=== PATIENT | female | born 1995 | race Caucasian/White ===

== ENCOUNTER 2018-10-13 23:45 | Inpatient (IN) | payer OTHER ==
[2018-10-14] MEDS ORDERED: BUTORPHANOL 1 MG/ML INJ IV ONE (03:08)
[2018-10-14] MEDS ORDERED: PROMETHAZINE 25 MG/ML VIAL IV PRN (03:10)
[2018-10-14] MEDS ORDERED: Ringers Lactate 1,000 ML IV PRN (03:10)
[2018-10-14] MEDS ORDERED: METHYLERGONOVINE 0.2MG/ML AMP IM PRN ×2 (03:10→14:30)
[2018-10-14] MEDS ORDERED: BUTORPHANOL 1 MG/ML INJ IV PRN (03:10)
[2018-10-14] MEDS ORDERED: OXYTOCIN/LR 20 UNIT/1,000 ML BAG IV ONE (03:34)
[2018-10-14] MEDS ORDERED: Ringers Lactate 1,000 ML IV ONE (03:34)
[2018-10-14] MEDS ORDERED: OXYTOCIN/LR 20 UNIT/1,000 ML BAG IV SCH ×2 (04:00→15:00)
[2018-10-14] MEDS ORDERED: Ringers Lactate 1,000 ML IV SCH (04:00)
[2018-10-14 04:08] LABS: RPR Titer ND
[2018-10-14 04:12] LABS: Urine Appearance CLEAR; Urine Bilirubin NEGATIVE (NEG); Urine Blood NEGATIVE (NEG); Urine Color YELLOW; Urine Glucose NEGATIVE (NEG); Urine Protein NEGATIVE (NEG); Urine Specific Gravity 1.015 (1.005-1.030); Urine Urobilinogen 0.2 mg/dL (0.2-1.0); Urine pH 6.5 (5.0-7.0)
[2018-10-14 04:13] LABS: Absolute Lymphocytes (CBC) 2.7 K/uL (0.7-4.9); Absolute Monocytes 0.8 K/uL (0.1-1.3); Absolute Neutrophil 8.1 K/uL (1.8-8.0); Basophils % 0.5 % (0-1.3); Eosinophils % 0.7 % (0-4.4); Hematocrit 32.8 % (36.0-45.0); Lymphocytes % 22.7 % (15.3-44.8); MPV 10.3 fL (7.6-11.3); Monocytes % 7.2 % (3.3-12.3); RBC Red Blood Cell Count 3.59 M/uL (3.86-4.86)
[2018-10-14] MEDS ORDERED: PROMETHAZINE 25 MG/ML VIAL IV ONE (04:13)
[2018-10-14 04:25] LABS: Urine Microscopic Reflex NO UMIC
[2018-10-14 04:57] VITALS: BMI 35.4
--- NOTE | 2018-10-14 06:53 | P.PN ---
Date of Service: 10/14/18 Cx 2+ cm, soft, 80% effaced, vtx ballotable at minus 2 station. FSE applied, clear fluid noted, pt. on pitocin.
[2018-10-14] MEDS ORDERED: FENTANYL/BUPIVACAINE/NS/PF 200 MCG/100 ML BAG EP PRN (06:56)
[2018-10-14] MEDS ORDERED: FENTANYL CITR 100 MCG/2 ML IV SCH ×2 (06:56→07:34)
[2018-10-14] MEDS ORDERED: BUPIVACAINE 0.25% PF 30 ML VIAL SQ PRN (06:59)
[2018-10-14] MEDS ORDERED: ROPIVACAINE HCL 100 ML IV PRN (07:29)
[2018-10-14] MEDS ORDERED: ROPIVACAINE HCL 0.2% 20ML AMP IV SCH (07:33)
--- NOTE | 2018-10-14 11:52 | PREOPHP ---
Date of Admission: 10/14/2018 History Of Present Illness: Ms. Dutta is a 23-year-old female, 1, para 0, at 39+ weeks gestation, admitted in prodromal labor. She had been having contractions, was observed for se veral hours, cervix unchanged, but contractions continued. Because of this, at this point with favor able cervix. She is admitted for augmentation of labor and delivery. Past Medical History: Please see record. Family History: Please see record. Review of Systems: She reports no recent cough, cold, fever, or chills. No recent nausea or vomiting. She denies any b reast lumps. has been active. She denies rupture of membrane. She denies urine symptoms or bowel issues. Physical Examination: General: Reveals female, in mild discomfort. Neck: Supple without adenopathy or thyromegaly. Lungs: Clear. Cardiac: Regular rate and rhythm without murmurs. Breasts: Not examined. Abdomen: Estimated weight approximately 8 pounds. Pelvic: Cervix now 2+ cm dilated, 80% effaced, and cervix soft with vertex ballotable. scalp electrode placed. Clear fluid noted. Extremities: Trace lower extremity edema. Impression: A 39+ week , prodromal labor. Plan: The patient augmented with Pitocin and now rupture of membranes. We will proceed with active management of labor. JEREMY/CHRISTEL Voice ID: [id number]
[2018-10-14] MEDS ORDERED: LIDOCAINE 1% 20 ML MDV ONE (14:12)
[2018-10-14] MEDS ORDERED: CARBOPROST TROME 250 MCG/ML IM PRN (14:30)
[2018-10-14] MEDS ORDERED: ONDANSETRON 4 MG (ODT) TAB PO PRN (14:30)
[2018-10-14] MEDS ORDERED: METHYLERGONOVINE 0.2 MG TAB PO PRN (14:30)
[2018-10-14] MEDS ORDERED: IBUPROFEN 200 MG TAB PO PRN (14:30)
[2018-10-14] MEDS ORDERED: Oxycodone HCl/Acetaminophen 1 TAB TAB PO PRN (14:30)
--- NOTE | 2018-10-14 14:32 | P.BOP ---
Preoperative diagnosis: 39+week Postoperative diagnosis: same Primary procedure: SCVD viable female infant Secondary procedure: repair of perineal lacerations Estimated blood loss: 350ml Anesthesia: epidural Complications: None Transferred to: Other (273) Condition: Good
[2018-10-14] MEDS ORDERED: Ringers Lactate 2,000 ML IV ONE (16:20)
--- NOTE | 2018-10-15 08:51 | DN ---
Surgeon: Barry Barry MD Ms. Dutta is a 23-year-old female, 1, para 0, at approximately 39 plus weeks gest ation. She is admitted in prodromal labor. After Pitocin augmentation of labor, she had first stage of labor of 5 hours and 36 minutes, second stage of labor of 1 hour and 54 minutes. She delivered b y spontaneous controlled vaginal delivery a 6-pound 15-ounce female . After delayed cord clamp ing, the cord was clamped, cut, and the placed on mother's upper abdomen. Cord blood was obta ined. The placenta was spontaneously expelled and appeared to be intact. Intrauterine examination r evealed no retained placental fragments. She suffered a second-degree right vaginal laceration and b ilateral periurethral lacerations which were repaired in usual fashion with 3-0 Vicryl suture. She h ad epidural catheter placed early and received good benefit from this. Estimated total blood loss wa s approximately 350 cc. The patient tolerated all procedures well. JEREMY/CHRISTEL Voice ID: [id number] Report ID: [id number]
[2018-10-15 15:27] VITALS: BP 124/89; TEMP 97.3
[2018-10-15 22:22] LABS: RPR (Rapid Plasma Reagin) NON-REACT (NON-REACT)
--- NOTE | 2018-10-16 06:19 | DS ---
Date of Discharge: 10/15/2018 Final Hospital Discharge Diagnoses: 39-week , delivered; iron deficiency anemia. Complications: None. Procedures: Artificial rupture membranes, Pitocin augmentation of labor, placement of epidural yolette ter, spontaneous controlled vaginal delivery of viable female infant, and repair of perineal lacerati ons. Hospital Course: The patient is a 23-year-old female, 1, para 0 at 39 plus weeks g estation admitted in prodromal labor. After augmentation and rupture of membranes, she delivered a 6 -pound 15-ounce female , Apgars 8 and 9 with epidural anesthesia and few perineal lacerations. Lab work included an admission hemoglobin and hematocrit of 10.9 and 32.8, dismissal 30.0. She had a negative urinalysis, nonreactive RPR, and is Rh positive blood type. She was dismissed with the us ual post vaginal delivery activity restrictions, to continue taking her iron and vitamins wi th a script for Tylenol No.3, #10, for pain relief, to be seen back in my office in 1 week. JEREMY/CHRISTEL Voice ID: [id number] Report ID: [id number]
[2018-10-19 03:35] LABS: HBsAG Nonreactive (Nonreactive)
== END 2018-10-15 16:15 | disposition home or self-care (01) | DRG 806 ==
LOC: L&D 23:45 → 2ND-WC 10-14 03:12
PROVIDERS: ADMIT Specialist; ATTEND Specialist
PROC: 10E0XZZ Delivery of Products of Conception, External Approach (ICD-10-PCS; principal; 2018-10-14)
PROC: 10907ZC Drainage of Amniotic Fluid, Therapeutic from Products of Conception, Via Natural or Artificial Opening (ICD-10-PCS; 2018-10-14)
PROC: 0KQM0ZZ Repair Perineum Muscle, Open Approach (ICD-10-PCS; 2018-10-14)
PROC: 0UQMXZZ Repair Vulva, External Approach (ICD-10-PCS; 2018-10-14)
DX: O99.02 Anemia complicating childbirth (principal); O71.4 Obstetric high vaginal laceration alone; Z37.0 Single live birth; D50.9 Iron deficiency anemia, unspecified; O71.82 Other specified trauma to perineum and vulva; Z3A.38 38 weeks gestation of pregnancy
CPT/HCPCS: 36415; 81003; 85014; 85025; 86592; 86901; 87340; 99218; J0595; J2210; J2550; J2590; J2795; J3010